=== PATIENT | female | born 1975 | race Caucasian/White ===

== ENCOUNTER → 2019-08-07 | Outpatient (CLI) | payer OTHER ==
--- NOTE | 2019-08-08 13:51 | RAD ---
DATE: 08/07/2019. EXAM: MAMMO JOHANA SCREENING BILATERAL. HISTORY: Routine mammographic screening. COMPARISON: None available. This is interpreted as a baseline study. This study was interpreted with the benefit of Computerized Aided Detection (CAD). FINDINGS: Breast Density: SCATTERED The breast parenchyma shows scattered fibroglandular densities. Breast parenchyma level B. A nodule superolaterally on the right appears mostly obscured and is likely a benign cyst. Another less well-defined focus is seen at the nipple line laterally. On the left, there is an asymmetric density medially and inferiorly. Scattered calcifications are benign. BI-RADS CATEGORY: 0 INCOMPLETE: NEEDS ADDITIONAL IMAGING EVALUATION AND/OR PRIOR MAMMOGRAMS FOR COMPARISON.. RECOMMENDED FOLLOW-UP: ADD ADDITIONAL IMAGING. 1. Spot compression and sonography of 2 nodules on the right and one on the left to establish the patient's baseline. See annotations. PQRS compliance statement: Patient information was entered into a reminder system with a target due date (now) for the next mammogram. Mammography is a sensitive method for finding small breast cancers, but it does not detect them all and is not a substitute for careful clinical examination. A negative mammogram does not negate a clinically suspicious finding and should not result in delay in biopsying a clinically suspicious abnormality. "Our facility is accredited by the [employer] Mammography [employer]."
== END | disposition home or self-care (01) ==
LOC: MAMMO 10:17
PROVIDERS: ATTEND Family Medicine
DX: Z12.31 Encounter for screening mammogram for malignant neoplasm of breast (principal); N64.89 Other specified disorders of breast
CPT/HCPCS: 77063; 77067

== ENCOUNTER → 2019-08-20 | Outpatient (CLI) | payer OTHER ==
--- NOTE | 2019-08-20 14:40 | RAD ---
DATE: 08/20/2019. EXAM: DIGITAL DIAGNOSTIC BILATERAL, BREAST BILATERAL. HISTORY: Nodules on mammographic screening. Additional imaging is requested. COMPARISON: 08/07/2019. This study was interpreted with the benefit of Computerized Aided Detection (CAD). FINDINGS: Breast Density: SCATTERED The breast parenchyma shows scattered fibroglandular densities. Breast parenchyma level B.. On the right, the nodules of concern become less conspicuous on spot compression. There is no suspicious mammographic finding in either site. On today's sonography, at the right 10:00 position 9 cm from the nipple, there is a benign 11 x 6 mm cyst, corresponding with the more posterior focus. There is no sonographic correlate for the more anterior focus. On the left, the small nodule of concern inferiorly and medially persists. On today's sonography at the 8:00 position 8 cm from the nipple, this corresponds with a benign cyst measuring 5 mm. There is no suspicious sonographic finding. BI-RADS CATEGORY: 3 PROBABLY BENIGN FINDING(S)-SHORT INTERVAL FOLLOW-UP SUGGESTED. RECOMMENDED FOLLOW-UP: 6M 6 MONTH FOLLOW-UP. 1. Recommend six-month follow-up bilateral diagnostic mammography to confirm stability of bilateral mammographic findings at baseline. Some are benign cysts, while other have no sonographic correlate and are likely parenchymal densities. PQRS compliance statement: Patient information was entered into a reminder system with a target due date 02/18/2020 for the next mammogram. Mammography is a sensitive method for finding small breast cancers, but it does not detect them all and is not a substitute for careful clinical examination. A negative mammogram does not negate a clinically suspicious finding and should not result in delay in biopsying a clinically suspicious abnormality. "Our facility is accredited by the [employer] Mammography [employer]."
== END | disposition home or self-care (01) ==
LOC: MAMMO 13:00
PROVIDERS: ATTEND Family Medicine
DX: N60.01 Solitary cyst of right breast (principal); N60.02 Solitary cyst of left breast
CPT/HCPCS: 76641; 77066